=== PATIENT | female | born 2000 | race Caucasian/White ===

== ENCOUNTER 2021-01-04 14:13 | Emergency (ER) | payer OTHER ==
[~2021-01-04] VITALS: Ht 157.5 cm; Wt 47.6 kg
== END 2021-01-04 17:19 | disposition home or self-care (01) ==
LOC: ER 14:13
DX: S93.402A Sprain of unspecified ligament of left ankle, initial encounter (principal); M79.672 Pain in left foot; W10.8XXA Fall (on) (from) other stairs and steps, initial encounter; Y92.89 Other specified places as the place of occurrence of the external cause

== ENCOUNTER 2024-09-01 16:10 | Emergency (ER) | payer OTHER ==
[~2024-09-01] VITALS: Ht 157.5 cm; Wt 56.7 kg
[2024-09-01 19:58] LABS: URINE APPEARANCE Clear; URINE BILIRRUBIN Negative (NEGATIVE); URINE BLOOD Negative; URINE COLOR Yellow; URINE GLUCOSE Negative (NEGATIVE); URINE KETONE Negative (NEGATIVE); URINE LEUKOCYTE Trace; URINE NITRATE Negative; URINE PROTEIN Negative (NEGATIVE); URINE UROBILINOGEN 0.2 E.U./dl
[2024-09-01 20:01] LABS: URINE BACTERIA 49.1 uL (0.0-1933); URINE EPITHELIAL CELLS 2.9 uL (0.0-38.8); URINE WBC 7.6 uL (0.0-23.2)
[2024-09-01 20:05] LABS: URINE CAST 0.00 uL (0.0-1.40); URINE RBC 0.8 uL (0.0-20.8)
[2024-09-01] MEDS ORDERED: METRONIDAZOLE500 MG PO (21:03)
[2024-09-01] MEDS ORDERED: FLUCONAZOLE150 MG PO (21:03)
[2024-09-01] MEDS ORDERED: CEFTRIAXONE SODIUM 1,000 MG VIAL IM ONE (21:15)
== END 2024-09-01 21:33 | disposition home or self-care (01) ==
LOC: ER 16:10
PROVIDERS: Emergency Medicine
DX: N89.8 Other specified noninflammatory disorders of vagina (principal); Z88.6 Allergy status to analgesic agent

== ENCOUNTER 2024-11-02 13:26 | Emergency (ER) | payer OTHER ==
[~2024-11-02] VITALS: Ht 165.1 cm; Wt 56.7 kg
[~2024-11-02 13:26] MED LIST: FLUCONAZOLE150 MG PO; METRONIDAZOLE500 MG PO
[2024-11-02] MEDS ORDERED: 0.9 % SODIUM CHLORIDE 500 ML IV ONE (15:15)
[2024-11-02 15:22] LABS: BASO % 0.5 % (0.1-1.2); EOS # 0.02 (0.04-0.54); EOS % 0.3 % (0.7-7.0); LYMPH # 1.31 (1.18-3.74); LYMPH % 21.5 % (19.3-53.1); MEAN PLATELET VOLUME 10.40 fl (9.4-12.4); MONO # 0.72 (0.24-0.82); MONO % 11.8 % (4.7-12.5); NEUT # 4.00 (1.56-6.13); NEUT % 65.7 % (34.0-71.1); RED CELL DISTRIBUTION WIDTH 11.9 % (11.6-14.4)
[2024-11-02 16:07] LABS: BUN CREA RATIO 13.0 (7.0-25.0); CREATININE SERUM 0.6 mg/dL (0.55-1.02); GFR 122.82; GLUCOSE FASTING 75.0 mg/dL (65-100); OSMOLALITY SERUM 280.0 MOSM/KG (275-295)
[2024-11-02 16:14] LABS: HCG QUANTITATIVE 99956.0 mUI/mL (1-3)
[2024-11-02 16:18] LABS: URINE APPEARANCE Turbid; URINE BILIRRUBIN Negative (NEGATIVE); URINE BLOOD Small; URINE COLOR Yellow; URINE GLUCOSE Negative (NEGATIVE); URINE KETONE Negative (NEGATIVE); URINE LEUKOCYTE Trace; URINE NITRATE Negative; URINE PROTEIN Negative (NEGATIVE); URINE UROBILINOGEN 0.2 E.U./dl
[2024-11-02 16:19] LABS: URINE BACTERIA 1219.2 uL (0.0-1933); URINE EPITHELIAL CELLS 23.0 uL (0.0-38.8); URINE RBC 16.4 uL (0.0-20.8); URINE WBC 13.0 uL (0.0-23.2)
[2024-11-02 16:37] LABS: URINE CAST 0.00 uL (0.0-1.40)
[2024-11-02 16:39] LABS: COVID-19 AG NEGATIVE (NEGATIVE)
[2024-11-02] MEDS ORDERED: INTESTINEX680 M1 PO (18:52)
[2024-11-02] MEDS ORDERED: ACETAMINOPHEN500 M1 PO (18:52)
[2024-11-02] MEDS ORDERED: METOCLOPRAMIDE HCL 5 MG/ML VIAL ONE (18:53)
[2024-11-02] MEDS ORDERED: METOCLOPRAMIDE HCL 10 MG in DEXTROSE 5 % IN WATER 50 ML IV ONE (19:00)
[2024-11-02] MEDS ORDERED: BUTALB-ASPIRIN1 EACH PO (19:45)
== END 2024-11-02 19:44 | disposition home or self-care (01) ==
LOC: ER 13:26
PROVIDERS: General Practice
DX: Z34.90 Encounter for supervision of normal pregnancy, unspecified, unspecified trimester (principal); Z3A.09 9 weeks gestation of pregnancy; R51.9 Headache, unspecified; R19.7 Diarrhea, unspecified; Z20.822 Contact with and (suspected) exposure to COVID-19; Z88.6 Allergy status to analgesic agent